=== PATIENT | female | born 1945 | race Caucasian/White ===

== ENCOUNTER → 2018-04-04 | Outpatient (CLI) | payer BC, OTHER ==
[~2018-04-04] VITALS: Ht 157.5 cm; Wt 74.8 kg
[~2018-04-04] MED LIST: BAYER ASPIRIN1 EACH PO; NEURONTIN 300300 M1 PO
--- NOTE | ~2018-04-04 | PATH ---
[facility] [place] [address] PATHOLOGY RPT PROCEDURE Name: ROMMEL CAMERON Room #: REG [facility] M.R.#: [id number] Admission: 04/04/18 Date of : 47 Discharge: Report #: [id number] Path Case #: [id number] [facility] Accession Number: [id number] . 01 Material submitted: . PART A: POLYP AT CECUM PART B: BX (RANDOM) OF RT COLON R/O MICROSCOPIC AND INFECTIOUS COLITIS PART C: BX (RANDOM) OF LT COLON R/O MICROSCOPIC AND INFECTIOUS COLITIS . 01 Clinical history: . Pre-OP DX: Screening Post-OP DX: Colon polyp . 02 Diagnosis: A. Polyp, at cecum, endoscopic biopsy: - Reactive hyperplastic changes. - Negative for dysplasia or malignancy. . B. Large intestine, right, rule out microscopic colitis, endoscopic biopsy: - Mild focal acute colitis, please see comment. - Melanosis coli. - Negative for microscopic colitis. - Negative for dysplasia or malignancy. . C. Large intestinal mucosa, left colon, rule out microscopic colitis, endoscopic biopsy: - Mild focal acute colitis associated with fibrotic lamina propria and subtle architectural abnormalities, please see comment. - Negative for microscopic colitis. - Negative for dysplasia or malignancy. . (IUV:mml; 04/05/18) [facility]/04/05/2018 . 02 Comment: Examination of the "right colon" biopsy tissue shows an expanded lamina propria with pigmented macrophages, lymphocytes as well as numerous eosinophils. Scattered foci of surface epithelial acute inflammation as well as acute cryptitis are identified. There are no architectural abnormalities within this biopsy tissue. On the other hand, the left colon mucosal biopsy tissue shows a fibrotic lamina propria along with subtle architectural abnormalities with a rare focus of cryptitis. Overall findings may be suggestive of an old resolving episode of colitis, acute/chronic diverticulitis, inflammatory bowel disease as well as medication-induced colitis, including laxative use. Inflammatory bowel disease is likely not a possibility due to lack of basal plasmacytosis as [address] [address] PATHOLOGY RPT PROCEDURE Name: ROMMEL CAMERON Room #: REG [facility].#: [id number] Admission: 04/04/18 Date of : 47 Discharge: Report #: [id number] Path Case #: [id number] well as the morphology. There are no viral inclusions present or parasitic organisms present. Please correlate clinically. . (IUV:mml; 04/05/18) . 02 Electronically signed: . Heaven Quiroz MD, Pathologist NPI- [id number] . 01 Gross description: . A. Received in formalin labeled "Rommel Cameron, polyp cecum," is a single segment of lyman soft tissue measuring 0.5 cm in maximum dimension. The specimen is entirely submitted in cassette A1. . B. Received in formalin labeled "Rommel Cameron, random BX right colon," are 6 segments of lyman soft tissue measuring 1.9 x 0.6 x 0.2 cm in aggregate dimensions and ranging from 0.2 to 0.6 cm in maximum dimension. The specimen is submitted entirely in cassette B1. . C. Received in formalin labeled "Rommel Cameron, random BX left colon," are 4 segments of lyman soft tissue measuring 1.5 x 0.6 x 0.3 cm in aggregate dimensions and ranging from 0.3 to 0.4 cm in maximum dimension. The specimen is submitted entirely in cassette C1. (TSD; 04/04/2018) TOB/TOB . 02 Pathologist provided ICD-10: K63.89, K52.9 . 02 CPT . 138863, 811933, 812523 Specimen Comment: A courtesy copy of this report has been sent to Specimen Comment: [phone], . Specimen Comment: Report sent to / DR CAO Specimen Comment: A duplicate report has been generated due to demographic updates. Performed at: [address], [place], [place] [id number] MD Suresh Rodriguez MD Phone: [phone] Performed at: [address] [id number] MD Heaven Quiroz MD Phone: [phone]
== END | disposition home or self-care (01) ==
LOC: GI 08:19
DX: K63.5 Polyp of colon (principal); K52.9 Noninfective gastroenteritis and colitis, unspecified; K57.30 Diverticulosis of large intestine without perforation or abscess without bleeding; K63.89 Other specified diseases of intestine; Z90.710 Acquired absence of both cervix and uterus; Z98.890 Other specified postprocedural states; Z79.82 Long term (current) use of aspirin; Z79.899 Other long term (current) drug therapy
CPT/HCPCS: 62110; 62900

== ENCOUNTER → 2020-10-10 | Outpatient (CLI) | payer OTHER | LOC: RAD 08:42 | PROVIDERS: ATTEND Neuromusculoskeletal Medicine & OMM | DX: M47.816 Spondylosis without myelopathy or radiculopathy, lumbar region (principal); M54.42 Lumbago with sciatica, left side; M43.16 Spondylolisthesis, lumbar region ==

== ENCOUNTER 2020-10-14 11:20 | Inpatient (IN) | payer BC, OTHER ==
[~2020-10-14] VITALS: Ht 154.9 cm; Wt 74.0 kg
[2020-10-14 11:20] VITALS: BP 133/83
[~2020-10-14 11:20] MED LIST changes: -ASA81BEC PO; -DILTIAZEM 24HR180 M1 PO; -MUCINEX600 MG; -NEURAPTINE1 GM PO; -PROTONIX40 M2 PO; -TOPROL XL100 MG PO; -XARELTO1 EACH PO
[2020-10-14 11:55] LABS: BASOPHILS 0.9 % (0.0-2.0); EOSINOPHILS 1.3 % (0.0-3.0); HEMATOCRIT 47.6 % (37.0-47.0); HEMOGLOBIN 15.9 gm/dL (12.0-15.0); MCH 28.4 pg (26.0-34.0); MCHC 33.5 g/dL (28.0-37.0); MCV 84.8 fL (80.0-100.0); MONOCYTES 6.5 % (1.0-8.0); PLATELET COUNT 243 thou/uL (150-400); POLYS 67.3 % (36.0-66.0); RBC 5.62 mil/uL (4.20-5.00); RDW 14.5 % (10.5-14.5); WBC 8.9 thou/uL (4.0-11.0)
[2020-10-14 12:11] LABS: ANION GAP 9 mmol/L (7-16); BUN 24 mg/dL (7-18); CALCIUM 9.3 mg/dL (8.5-10.1); CHLORIDE 102 mmol/L (98-107); CO2 28 mmol/L (21-32); CREATININE 0.9 mg/dL (0.6-1.0); GLUCOSE 100 mg/dL (74-106); POTASSIUM 3.9 mmol/L (3.5-5.1); SODIUM 139 mmol/L (136-145)
[2020-10-14 12:21] LABS: MAGNESIUM 2.3 mg/dL (1.8-2.4); SGOT 22 U/L (15-37); SGPT 31 U/L (14-59); TOTAL BILIRUBIN 0.5 mg/dL (0.2-1.0); TOTAL PROTEIN 8.5 g/dL (6.4-8.2); TROPONIN-I <0.06 ng/mL (<0.06)
[2020-10-14 12:36] LABS: ALBUMIN 4.2 g/dL (3.4-5.0)
--- NOTE | 2020-10-14 12:48 | EKG ---
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
[2020-10-14 14:44] VITALS: BP 134/99
--- NOTE | 2020-10-14 14:48 | NUR ---
REPORT GIVEN TO BRENT MAYO AT THIS TIME. DENIES FURTHER QUESTIONS. PT IS STABLE AND READY FOR TRANSPORT
[2020-10-14] MEDS ORDERED: NEURAPTINE1 GM PO (15:19)
[2020-10-14] MEDS ORDERED: XARELTO1 EACH PO (15:21)
[2020-10-14] MEDS ORDERED: ASA81BEC PO (15:22)
[2020-10-14] MEDS ORDERED: MUCINEX600 MG (15:23)
[2020-10-14 15:47] VITALS: BP 130/91
[2020-10-14 20:15] VITALS: BP 111/64
[2020-10-15 04:45] VITALS: BP 115/61
[2020-10-15 04:59] LABS: HEMATOCRIT 44.7 % (37.0-47.0); HEMOGLOBIN 14.8 gm/dL (12.0-15.0); RBC 5.26 mil/uL (4.20-5.00); RDW 14.4 % (10.5-14.5); WBC 8.8 thou/uL (4.0-11.0)
[2020-10-15 08:00] VITALS: BP 129/87
[2020-10-15 12:10] VITALS: BP 130/77
--- NOTE | 2020-10-15 15:17 | NUR ---
PT ADMITTED RELATED TO AFIB W/RVR, GI BLEED. CM REVIEWED CHART AND SPOKE WITH PT AT BEDSIDE THIS DAY. PT APPEARED TO BE A&O X4. CM ROLE INTRODUCED. PT INDICATED THAT SHE RESIDES IN A HOUSE WITH HER SPOUSE WITH 1 STEP TO ENTER AND A FULL FLIGHT OT BASEMENT. 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 PT'S MEDICARE IS PRIMARY AND [employer] SECONDARY. PT HAD EGD THIS DAY. CARE TEAM INDICATED THAT PT IS MEDCIALLY STABLE TO DC HOME THIS DAY. NO NEEDS ANTICPATED. DC HOME TO SELF CARE THIS DAY. CASE CLOSED.
[2020-10-15] MEDS ORDERED: DILTIAZEM 24HR180 M1 PO (15:19)
[2020-10-15] MEDS ORDERED: TOPROL XL100 MG PO (15:19)
[2020-10-15] MEDS ORDERED: PROTONIX40 M2 PO (15:26)
[2020-10-15 16:20] VITALS: BP 122/83
[2020-10-15 16:55] VITALS: BP 122/83
--- NOTE | 2020-10-16 15:34 | P ---
[facility] [place] [address] [place] [address] PROCEDURE REPORT Name: SHANT CAMERON Room #: 218-P [facility] M.R.#: [id number] Admission: 10/14/20 Attend Phys: Benson De La Cruz MD, Discharge: 10/15/20 Date of : 47 Report #: [id number] THIS REPORT FOR: cc: Gabriel Strong,Gabriel Baig,Kamron Jamil MD ~ DOC #: [id number] cc: Benson De La Cruz MD, MD Kamron Selby MD DATE OF SERVICE: 10/15/2020 PROCEDURE PERFORMED: Upper endoscopy with biopsies. HISTORY OF PRESENT ILLNESS: The patient is a 74-year-old female who was diagnosed recently with AFib, started on Xarelto and noted dark black tarry stools last week. She had been taking BC powder q.4-6 hours for many years for headaches and pain. She stopped this recently. No previous history of upper endoscopy. She does report intermittent midepigastric abdominal discomfort. Denies any reflux symptoms. Colonoscopy approximately 5 years ago. No previous history of upper endoscopy. Her hemoglobin on admission 15.9, today it is 14.8. Stool was Hemoccult negative x 1. Plan is for upper endoscopy. DESCRIPTION OF PROCEDURE: The risks and benefits of the procedure were explained to the patient, those risks including but not limited to bleeding, perforation and the risk of sedation. She understood these risks and gave informed consent. Sedation was given using propofol per anesthesia. Next, using a standard Olympus upper endoscope, the scope was placed in the patient's mouth and advanced under direct vision through the esophagus, stomach and into the second portion of the duodenum. The upper and mid esophagus was normal in appearance. In the distal esophagus just above the GE junction, a polypoid mass was seen. It was approximately 1.5 cm in size. Again, this was not in the stomach, but in the distal esophagus. Multiple biopsies were obtained. No esophagitis was noted at the GE junction. Upon entering the stomach, a small hiatal hernia was noted. Overall, the gastric mucosa was normal in the fundus and upper body; however, in the distal body and antrum, a moderate gastritis was noted with multiple small ulcerations and erosions. These were all clean white based ulcers were approximately 4-6 mm in size. There was no evidence of bleeding. The biopsies were obtained to rule out H. pylori. The pylorus was normal and patent. The duodenal bulb, first and second portion were all normal. The scope was then withdrawn and the procedure terminated. The patient tolerated the procedure well. IMPRESSION: 1. Polypoid lesion/mass in the distal esophagus. Multiple biopsies obtained. 2. Multiple small gastric ulcers and erosions in the gastric antrum. No active [address] [address] PROCEDURE REPORT Name: SHANT CAMERON Room #: 218-P [facility] M.R.#: [id number] Admission: 10/14/20 Attend Phys: Benson De La Cruz MD, Discharge: 10/15/20 Date of : 47 Report #: [id number] bleeding. 3. Small hiatal hernia. 4. Otherwise, normal upper endoscopy. RECOMMENDATIONS: 1. Await biopsy results. 2. 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 3. Hold Xarelto for another 1-2 weeks. Need to await biopsies of lesion in the distal esophagus to rule out malignancy. If this is benign, I would still recommend having this removed, likely recommend Dr. Sharif to perform this in the near future. Thank you for allowing me to participate in her care. Kamron Montoya MD [facility] <ELECTRONICALLY SIGNED> By: Kamron Montoya MD 10/16/20 1534 1342 2214 Kamron Montoya MD /nt
--- NOTE | 2020-10-21 12:06 | PATH ---
[facility] [address] [address] PATHOLOGY RPT PROCEDURE Name: ROMMEL CAMERON MARTINEZ Room #: 218-P [facility] M.R.#: [id number] Admission: 10/14/20 Date of : 47 Discharge: 10/15/20 Report #: [id number] Path Case #: [id number] [facility] Accession Number: [id number] . 01 Material submitted: . PART A: gastrointestinal site - GASTRIC BIOPSY R/O H PYLORI PART B: esophagus - DISTAL ESOPHAGUS POLYP MASS. Modifiers: distal . 01 Clinical history: . EGD DARK BLACK STOOLS . 02 Diagnosis: A. Gastric mucosa, gastritis, endoscopic biopsy: - Mild to moderate reactive gastropathy. - Negative for intestine metaplasia or atrophy. - Negative for Helicobacter pylori (properly controlled immunohistochemical stain performed). . B. Polypoid mass, distal esophagus, endoscopic biopsy: - Multiple fragments of a squamous papilloma. - Negative for intestinal metaplasia, dysplasia or malignancy. . (IUV:sql architect; 10/18/2020) [facility] 10/18/2020 1411 Local . 02 Electronically signed: . Heaven Quiroz MD, Pathologist NPI- [id number] . 01 Gross description: . A. Received in formalin labeled "Rommel Cameron, gastric bx" are multiple lyman-brown soft tissue fragments measuring in aggregate 0.6 x 0.4 x 0.1 cm. The specimen is submitted entirely in A1. . B. Received in formalin labeled "Rommel Cameron, distal esophagus polypoid mass" are multiple lyman-brown soft tissue fragments measuring in aggregate 0.4 x 0.4 x 0.1 cm. The specimen is submitted entirely in B1. (KIMBERLY; 10/17/2020) KIMBERLY/KIMBERLY 10/17/2020 1232 Local . 02 Pathologist provided ICD-10: K31.9, D13.0 . 02 CPT . 327028, 027675, W65830 Specimen Comment: A courtesy copy of this report has been sent to [phone], [place] [address] PATHOLOGY RPT PROCEDURE Name: ROMMEL CAMERON Room #: 218-P [facility] IN M.R.#: [id number] Admission: 10/14/20 Date of : 47 Discharge: 10/15/20 Report #: [id number] Path Case #: [id number] Specimen Comment: 2251, Specimen Comment: Report sent to ,DR DANIEL / DR CAO Specimen Comment: Report sent to Performed at: [address], [place] [id number] MD Saul Mckeon MD Phone: [phone] Performed at: [address] [id number] MD Heaven Quiroz MD Phone: [phone]
== END 2020-10-15 18:24 | disposition home or self-care (01) | DRG 308 ==
LOC: ER 11:20 → EROBS 14:06 → 2N 14:06
PROVIDERS: Nurse Practitioner Adult Health; Physician Assistant; ADMIT Internal Medicine Cardiovascular Disease; ATTEND Internal Medicine Cardiovascular Disease
PROC: 0DB38ZX Excision of Lower Esophagus, Via Natural or Artificial Opening Endoscopic, Diagnostic (ICD-10-PCS; principal; 2020-10-15)
PROC: 0DB68ZX Excision of Stomach, Via Natural or Artificial Opening Endoscopic, Diagnostic (ICD-10-PCS; principal; 2020-10-15)
DX: I48.20 Chronic atrial fibrillation, unspecified (principal); K29.71 Gastritis, unspecified, with bleeding; K44.9 Diaphragmatic hernia without obstruction or gangrene; E78.5 Hyperlipidemia, unspecified; K22.8 Other specified diseases of esophagus; Z20.822 Contact with and (suspected) exposure to COVID-19; Z79.82 Long term (current) use of aspirin; Z90.710 Acquired absence of both cervix and uterus; Z79.01 Long term (current) use of anticoagulants; Z79.899 Other long term (current) drug therapy
CPT/HCPCS: 10081; 62110; 62900; 70005

== ENCOUNTER → 2020-10-14 | Outpatient (CLI) | payer OTHER ==
[~2020-10-14] MED LIST changes: +ASA81BEC PO; +DILTIAZEM 24HR180 M1 PO; +MUCINEX600 MG; +NEURAPTINE1 GM PO; +PROTONIX40 M2 PO; +TOPROL XL100 MG PO; +XARELTO1 EACH PO
== END ==
LOC: SJCVCIMAG 08:57
PROVIDERS: ATTEND Internal Medicine Cardiovascular Disease
DX: I08.1 Rheumatic disorders of both mitral and tricuspid valves (principal); I11.9 Hypertensive heart disease without heart failure; I48.91 Unspecified atrial fibrillation

== ENCOUNTER → 2020-11-14 | Outpatient (CLI) | payer OTHER, BC ==
[~2020-11-14] MED LIST changes: +ASA81BEC PO; +DILTIAZEM 24HR180 M1 PO; +MUCINEX600 MG; +NEURAPTINE1 GM PO; +PROTONIX40 M2 PO; +TOPROL XL100 MG PO; +XARELTO1 EACH PO
== END ==
LOC: SJCVC 12:20
PROVIDERS: ATTEND Internal Medicine Cardiovascular Disease
DX: R94.31 Abnormal electrocardiogram [ECG] [EKG] (principal); I48.0 Paroxysmal atrial fibrillation; E78.00 Pure hypercholesterolemia, unspecified; D68.59 Other primary thrombophilia; Q23.1 Congenital insufficiency of aortic valve; Q21.0 Ventricular septal defect; Z79.899 Other long term (current) drug therapy

== ENCOUNTER → 2020-11-28 | Outpatient (CLI) | payer OTHER | LOC: MRI 12:26 | PROVIDERS: ATTEND Neuromusculoskeletal Medicine & OMM | DX: M51.36 Other intervertebral disc degeneration, lumbar region (principal); M51.35 Other intervertebral disc degeneration, thoracolumbar region; M51.37 Other intervertebral disc degeneration, lumbosacral region; N94.89 Other specified conditions associated with female genital organs and menstrual cycle; G96.191 Perineural cyst; N28.1 Cyst of kidney, acquired; M48.05 Spinal stenosis, thoracolumbar region; M48.062 Spinal stenosis, lumbar region with neurogenic claudication; M48.07 Spinal stenosis, lumbosacral region ==

== ENCOUNTER → 2020-12-11 | Outpatient (CLI) | payer OTHER ==
[~2020-12-11] VITALS: Ht 154.9 cm; Wt 74.8 kg
[~2020-12-11] MED LIST changes: +NEURONTIN300 MG PO; +PACERONE 200 M200 M1 PO; +XARELTO20 MG PO
[2020-12-11 07:44] VITALS: BP 138/91
--- NOTE | 2020-12-11 08:58 | TEE ---
[facility] [address] TRANSESOPHAGEAL ECHOCARDIOGRAM Name: SHANT CAMERON Room #: REG [facility]#: [id number] Admission: 12/11/20 Attend Phys: Omi Pettit MD, Discharge: Date of : 47 Report #: [id number] THIS REPORT FOR: cc: Gabriel Strong,Omi Haque MD [facility] ~ APPROVED REPORT Study performed: 12/11/2020 07:17:52 EXAM: Transesophageal Echocardiogram Patient Location: Holding Status: routine BSA: 1.74 HR: 90 bpm BP: 138/91 mmHg Rhythm: Atrial Fibrillation Other Information Study Quality: Good Indications Atrial Fibrillation Cardioversion Procedure After obtaining informed consent, patient underwent transesophageal echo in the [employer]. Type of Sedation : Conscious Sedation Sedation was administered by Alyssia Centeno RN. Sedation start time: 075 Case end Time: 756 Sedation was achieved intravenously with: Versed (2) Fentanyl (50) Transesophageal probe was inserted and advanced into esophagus without difficulty by Omi Pettit MD [facility]. Echo enhancement indication: R/O Septal defect. Echo enhancement agent administered: Agitated Saline The GERMAN was performed without complications. Throughout the procedure, the blood pressure, pulse oximetry, cardiac rhythm, and rate were monitored. The patient tolerated the procedure without adverse effects. Recovery from conscious sedation was uneventful and vital signs were stable. Cardioversion was canceled. [facility] [address] [place] [address] TRANSESOPHAGEAL ECHOCARDIOGRAM Name: SHANT CAMERON Room #: REG [facility].#: [id number] Admission: 12/11/20 Attend Phys: Omi Pettit, Discharge: Date of : 47 Report #: [id number] Left Ventricle The left ventricle is normal size. There is normal left ventricular wall thickness. VSD is present. Left ventricular systolic function is mildly decreased. LVEF is 45%. Right Ventricle The right ventricle is normal size. The right ventricular systolic function is normal. Atria Biatrial enlargement. Suspicion of thrombus in the left atrial appendage. Bubble study did not show any shunting. PFO noted on regular thoracic echo. Aortic Valve Aortic valve is bicuspid. No aortic regurgitation is present. There is no aortic valvular stenosis. Mitral Valve The mitral valve is normal in structure. Mild mitral regurgitation. No evidence of mitral valve stenosis. Tricuspid Valve The tricuspid valve is normal in structure. Mild tricuspid regurgitation. Pulmonic Valve The pulmonary valve is normal in structure. Great Vessels The aortic root is normal in size. Mild atherosclerotic plaque is present in the descending aorta. Pericardium There is no pericardial effusion. <Conclusion> Atrial fibrillation at baseline Timeout was performed Consent was obtained After appropriate sedation esophageal probe was advanced without difficulty Left atrium; moderate size with evidence of echogenicity distal third suspicious for a clot Mild left atrial enlargement [facility] [address] [place] [address] TRANSESOPHAGEAL ECHOCARDIOGRAM Name: NISHA,SHANT MARTINEZ Room #: REG CL ..#: [id number] Admission: 12/11/20 Attend Phys: Omi Pettit, Discharge: Date of : 47 Report #: [id number] Bicuspid aortic valve, no stenosis detected Mild central mitral valve insufficiency Mild tricuspid valve insufficiency Color-flow Doppler study was performed Evidence of small VSD with fqza-zd-[id number] shunt in the distal septum No evidence of atrial septal defect Ejection fraction 45% that with the distal septal hypokineses No pericardial effusion Mild plaque throughout the aorta Patient tolerated procedure well Cardioversion was not performed due to the echogenicity detected in the left atrial appendage <ELECTRONICALLY SIGNED> By: Omi Pettit MD, FACC 12/11/2058 7 7 Omi Pettit MD, FACC /INF
== END | disposition home or self-care (01) ==
LOC: CATH 11-20 08:32
PROVIDERS: ATTEND Internal Medicine
DX: I48.91 Unspecified atrial fibrillation (principal); I08.1 Rheumatic disorders of both mitral and tricuspid valves; I70.0 Atherosclerosis of aorta; E78.5 Hyperlipidemia, unspecified; K21.9 Gastro-esophageal reflux disease without esophagitis; Z98.890 Other specified postprocedural states; Z79.899 Other long term (current) drug therapy; Z79.01 Long term (current) use of anticoagulants; Z90.710 Acquired absence of both cervix and uterus; Z82.49 Family history of ischemic heart disease and other diseases of the circulatory system; Z20.822 Contact with and (suspected) exposure to COVID-19

== ENCOUNTER → 2021-02-04 | Outpatient (CLI) | payer OTHER ==
[~2021-02-04] VITALS: Ht 157.5 cm; Wt 76.0 kg
[2021-02-04 07:53] VITALS: BP 136/57
--- NOTE | 2021-02-04 08:00 | EKG ---
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1945 Requested By: Joelle Sims Order Number: [id number] MD: Gwyn Caceres Measurements Intervals [place] Rate: 86 P: MI: QRS: 52 QRSD: 96 T: 5 QT: 398 QTc: 476 Interpretive Statements Atrial fibrillation Abnormal R-wave progression, late transition Borderline repolarization abnormality Compared to ECG 10/14/2020 11:29:52 No significant change was found Electronically Signed On 02-04-2021 8:00:10 CDT by Gwyn Caceres [email or web address] <ELECTRONICALLY SIGNED> By: Gwyn Caceres MD, [facility] 02/04/21 0800 D: [address] 5 Gwyn Caceres MD, FAC /EPI
[2021-02-04 08:50] LABS: HEMOGLOBIN 14.7 gm/dL (12.0-15.0); MCH 28.5 pg (26.0-34.0); MCHC 32.7 g/dL (28.0-37.0); MCV 87.3 fL (80.0-100.0); RBC 5.16 mil/uL (4.20-5.00); RDW 15.6 % (10.5-14.5); WBC 8.4 thou/uL (4.0-11.0)
[2021-02-04 09:06] LABS: ALBUMIN 3.9 g/dL (3.4-5.0); CREATININE 1.2 mg/dL (0.6-1.0); POTASSIUM 4.4 mmol/L (3.5-5.1); TOTAL BILIRUBIN 0.7 mg/dL (0.2-1.0); TOTAL PROTEIN 8.2 g/dL (6.4-8.2)
--- NOTE | 2021-02-04 09:23 | TEE ---
[facility] [place] [address] [place] [address] TRANSESOPHAGEAL ECHOCARDIOGRAM Name: SHANT CAMERON Room #: REG [facility]#: [id number] Admission: 02/04/21 Attend Phys: Omi Pettit MD, Discharge: Date of : 47 Report #: [id number] THIS REPORT FOR: cc: Gabriel Strong,Omi Haque MD [facility] ~ APPROVED REPORT Study performed: 02/04/2021 08:26:17 EXAM: Comprehensive 2D, Doppler, and color-flow Echocardiogram Patient Location: Out-Patient Room #: 9 Status: routine BSA: 1.74 HR: 79 bpm BP: 122/72 mmHg Rhythm: Atrial Flutter Other Information Study Quality: Good Indications Atrial flutter Echo Enhancing Agent Indication: Rule out Shunt Agent(s) / Amount(s) Used: Agitated Saline 7 cc Procedure After obtaining informed consent, patient underwent transesophageal echo in the [employer]. Type of Sedation : Conscious Sedation Sedation was administered by Nurse. Sedation start time: 824 Case end Time: 839 Sedation was achieved intravenously with: Versed (4.5mg) Fentanyl (50mcg) Transesophageal probe was inserted and advanced into esophagus without difficulty by Omi Pettit MD. Echo enhancement indication: R/O Septal defect. Echo enhancement agent administered: Agitated Saline The GERMAN was performed without complications. Synchronized Cardioversion acheived with 100 Joules after 1 [facility] [address] [address] TRANSESOPHAGEAL ECHOCARDIOGRAM Name: SHANT CAMERON Room #: REG [facility].#: [id number] Admission: 02/04/21 Attend Phys: Omi Pettit, Discharge: Date of : 47 Report #: [id number] attempt(s). Rhythm following Synchronized Cardioversion: Normal Sinus Rhythm Throughout the procedure, the blood pressure, pulse oximetry, cardiac rhythm, and rate were monitored. The patient tolerated the procedure without adverse effects. Recovery from conscious sedation was uneventful and vital signs were stable. Left Ventricle The left ventricle is normal size. There is akinesis in the apical septal wall. There is normal left ventricular wall thickness. Apical ventricular septal defect is present. Left ventricular systolic function is mildly decreased. LVEF is 40-45%. Right Ventricle The right ventricle is normal size. The right ventricular systolic function is normal. Atria Left atrium is dilated. No thrombus is visualized in the left atrium or appendage. Small PFO is noted. Right atrium is dilated. Aortic Valve The aortic valve is normal in structure. No aortic regurgitation is present. There is no aortic valvular stenosis. Mitral Valve The mitral valve is normal in structure. Mild mitral regurgitation. No evidence of mitral valve stenosis. Tricuspid Valve The tricuspid valve is normal in structure. Mild tricuspid regurgitation. Pulmonic Valve The pulmonary valve is normal in structure. Trace pulmonic regurgitation. Great Vessels The aortic root is normal in size. Pericardium There is no pericardial effusion. <Conclusion> Consent was obtained [facility] [place] [address] [place] [address] TRANSESOPHAGEAL ECHOCARDIOGRAM Name: NISHA,SHANT MARTINEZ Room #: REG [facility].#: [id number] Admission: 02/04/21 Attend Phys: Omi Pettit, Discharge: Date of : 47 Report #: [id number] Timeout performed Atrial flutter at baseline Esophageal probe was advanced without difficulty after appropriate sedation Left atrial appendage no obvious clot detected Normal left ventricle size/wall thickness Ejection fraction 45% Evidence of a small VSD in the distal portion of the septum by color study with a yngd-uo-ehlgc shunt Normal right ventricular size/function Moderate left atrial enlargement Mild right atrial enlargement Normal aortic valve structure/function Mild mitral valve insufficiency Mild tricuspid valve insufficiency Normal aortic root size Trace posterior pericardial effusion Bubble study was performed; no evidence of right to left shunt Patient was successfully cardioverted to sinus rhythm after 100 J in a biphasic mode Patient tolerated procedure well Twelve-lead ECG pending <ELECTRONICALLY SIGNED> By: Omi Pettit MD, [facility] 02/04/2123 2 0923 Omi Pettit MD, FACC /INF
--- NOTE | 2021-02-04 15:55 | EKG ---
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1945 Requested By: Omi Pettit Order Number: [id number] MD: Omi Pettit Measurements Intervals [place] Rate: 52 P: 64 LA: 239 QRS: 69 QRSD: 95 T: 14 QT: 496 QTc: 462 Interpretive Statements Sinus rhythm Prolonged LA interval Left atrial enlargement Abnormal R-wave progression, late transition Borderline T abnormalities, anterior leads Compared to ECG 02/04/2021 07:46:08 First degree AV block now present Atrial abnormality now present T-wave abnormality now present Atrial fibrillation no longer present Electronically Signed On 02-04-2021 15:54:56 CDT by Omi Pettit [email or web address] <ELECTRONICALLY SIGNED> By: Omi Pettit MD, [facility] 02/04/21 1554 9 09 Omi Pettit MD, [facility] /EPI
== END | disposition home or self-care (01) ==
LOC: CATH 01-21 07:35
PROVIDERS: Nurse Practitioner Adult Health; ATTEND Internal Medicine
DX: I48.92 Unspecified atrial flutter (principal); I08.1 Rheumatic disorders of both mitral and tricuspid valves; I48.91 Unspecified atrial fibrillation; E78.00 Pure hypercholesterolemia, unspecified; Z98.890 Other specified postprocedural states; Z79.899 Other long term (current) drug therapy; Z90.710 Acquired absence of both cervix and uterus; Z87.19 Personal history of other diseases of the digestive system; Z79.01 Long term (current) use of anticoagulants

== ENCOUNTER → 2021-02-11 | Outpatient (CLI) | payer OTHER | LOC: SJCVC 10:35 | PROVIDERS: ATTEND Internal Medicine Cardiovascular Disease | DX: I48.0 Paroxysmal atrial fibrillation (principal); E78.00 Pure hypercholesterolemia, unspecified; R42 Dizziness and giddiness; K21.9 Gastro-esophageal reflux disease without esophagitis; D68.59 Other primary thrombophilia; Z87.19 Personal history of other diseases of the digestive system; Z79.899 Other long term (current) drug therapy ==

== ENCOUNTER → 2021-03-25 | Outpatient (CLI) | payer OTHER | LOC: SJCVC 09:36 | PROVIDERS: ATTEND Internal Medicine Cardiovascular Disease | DX: R94.31 Abnormal electrocardiogram [ECG] [EKG] (principal); I48.0 Paroxysmal atrial fibrillation; I10 Essential (primary) hypertension; D68.59 Other primary thrombophilia; Q23.1 Congenital insufficiency of aortic valve; R42 Dizziness and giddiness; R00.1 Bradycardia, unspecified; I42.9 Cardiomyopathy, unspecified; E78.5 Hyperlipidemia, unspecified; Z87.19 Personal history of other diseases of the digestive system; Z79.899 Other long term (current) drug therapy ==

== ENCOUNTER → 2021-05-26 | Outpatient (CLI) | payer OTHER | LOC: SJCVC 09:26 | PROVIDERS: ATTEND Nurse Practitioner Adult Health | DX: I48.0 Paroxysmal atrial fibrillation (principal); I10 Essential (primary) hypertension; D68.59 Other primary thrombophilia; Q23.1 Congenital insufficiency of aortic valve; R42 Dizziness and giddiness; Z87.19 Personal history of other diseases of the digestive system; R00.1 Bradycardia, unspecified; I42.9 Cardiomyopathy, unspecified; Z79.899 Other long term (current) drug therapy; Z98.890 Other specified postprocedural states; E78.5 Hyperlipidemia, unspecified; D50.9 Iron deficiency anemia, unspecified ==